=== PATIENT | male | born 1995 | race Caucasian/White ===

== ENCOUNTER → 2023-01-20 | Outpatient (CLI) | payer OTHER | LOC: M PLAIMG 08:06 | PROVIDERS: ATTEND Otolaryngology | DX: J32.0 Chronic maxillary sinusitis (principal); R93.0 Abnormal findings on diagnostic imaging of skull and head, not elsewhere classified ==

== ENCOUNTER 2023-02-09 17:08 | Emergency (ER) | payer OTHER ==
[~2023-02-09] VITALS: Ht 175.3 cm; Wt 84.1 kg
[2023-02-09] MEDS ORDERED: HOLTER MONITOR XX (20:31)
[2023-02-09 21:03] VITALS: BP 134/84; TEMP 97.5; O2SAT 98
== END 2023-02-09 20:50 | disposition home or self-care (01) ==
LOC: M ED 17:08
DX: R07.89 Other chest pain (principal); I10 Essential (primary) hypertension; E78.5 Hyperlipidemia, unspecified; R00.1 Bradycardia, unspecified

== ENCOUNTER 2023-09-09 10:07 | Day surgery (SDC) | payer OTHER ==
[~2023-09-09] VITALS: Ht 180.3 cm; Wt 89.6 kg
[~2023-09-09 10:07] MED LIST: HOLTER MONITOR XX
[2023-09-09] MEDS ORDERED: LR 1,000 ML IV SCH (10:55)
[2023-09-09] MEDS ORDERED: LIDOCAINE 2% 100MG/5ML SDV (FOR ANES.) As Ordered ONE (11:33)
[2023-09-09] MEDS ORDERED: ROCURONIUM BROMIDE 50MG/5ML VIAL As Ordered ONE (11:33)
[2023-09-09] MEDS ORDERED: propofoL 200 MG/20 ML VIAL As Ordered ONE (11:33)
[2023-09-09] MEDS ORDERED: SUGAMMADEX SODIUM 500 MG/5 ML VIAL (BRIDION) As Ordered ONE (11:33)
[2023-09-09] MEDS ORDERED: ONDANSETRON 4MG 2ML VIAL As Ordered ONE (11:34)
[2023-09-09] MEDS ORDERED: dexmedeTOMIDine (4MCG/ML)200MCG/50ML BTL (PRECEDEX) As Ordered ONE (14:09)
[2023-09-09] MEDS ORDERED: fentaNYL 250 MCG/5 ML INJECTION As Ordered ONE (14:10)
[2023-09-09] MEDS ORDERED: MIDAZOLAM INJ 2MG/2ML VIAL As Ordered ONE (14:10)
[2023-09-09] MEDS ORDERED: LACRILUBE (AKWA TEARS) OPHTH OINT 3.5GM As Ordered ONE (14:45)
[2023-09-09] MEDS: EPINEPHrine 1MG/ML INJ 30ML MD-VIAL As Ordered ONE (14:46)
[2023-09-09] MEDS: LIDOCAINE W/EPINEPHRINE 1% 20ML VIAL As Ordered ONE (14:46)
[2023-09-09] MEDS: METHYLENE BLUE 0.5% (5MG/ML) 10 ML AMP (PROVAYBLUE) As Ordered ONE (14:46)
[2023-09-09] MEDS ORDERED: ACETAMINOPHEN 1000MG 100ML IV BAG As Ordered ONE (15:02)
[2023-09-09] MEDS ORDERED: LABETALOL 100MG/20ML VIAL As Ordered ONE (15:03)
[2023-09-09] MEDS: SODIUM CHLORIDE 0.9% NASAL GEL 15GM (AYR) As Ordered ONE (15:14)
[2023-09-09] MEDS ORDERED: oxyCODONE 5MG TAB PO PRN (15:30)
[2023-09-09] MEDS ORDERED: ONDANSETRON 4MG 2ML VIAL IV PRN (15:30)
[2023-09-09] MEDS: fentaNYL 100 MCG/2 ML INJECTION IV PRN (16:06)
[2023-09-09 17:32] VITALS: BP 128/71; TEMP 97.9; O2SAT 97
== END 2023-09-09 17:43 | disposition home or self-care (01) ==
LOC: M SDC 10:07
PROVIDERS: ATTEND Otolaryngology
DX: J34.2 Deviated nasal septum (principal); R09.81 Nasal congestion; I10 Essential (primary) hypertension
CPT/HCPCS: 30520; 30802; 88300; J0131; J0171; J1100; J1920; J2250; J2405; J3010; Q9968